=== PATIENT | male | born 1995 | race Caucasian/White ===

== ENCOUNTER 2018-07-15 10:28 | Emergency (ER) | payer MEDICAID ==
[~2018-07-15] VITALS: Ht 177.8 cm; Wt 81.8 kg
[2018-07-15 10:46] VITALS: Ht 177.8 cm; Wt 81.8 kg
[2018-07-15] MEDS ORDERED: NOVOLOG PUMP (10:49)
[2018-07-15 11:19] LABS: BASOPHILS 0.2 % (0-2); EOSINOPHILS 0.2 % (0-7); HEMATOCRIT 45.2 % (42.0-54.0); HEMOGLOBIN 15.5 g/dL (13.5-17.5); IMMATURE GRANULOCYTES 0.7 % (0-5); LYMPHOCYTES 10.6 % (15-50); MCH 30.2 pg (26.0-34.0); MCHC 34.3 g/dL (31.0-37.0); MCV 87.9 fL (80.0-100.0); MEAN PLATELET VOLUME 11.3 fL (7.4-10.4); NEUTROPHILS 84.3 % (40-80); PLATELET COUNT 213 10x3/uL (130-400); RBC 5.14 10x6/uL (4.20-6.10); RDW 12.4 % (11.5-14.5); WBC 10.7 10x3/uL (4.8-10.8)
[2018-07-15 11:29] LABS: KETONE - SERUM SMALL mg/dL (NEGATIVE)
[2018-07-15 11:42] LABS: ALKALINE PHOSPHATASE 127 U/L (46-116); ALT (SGPT) 50 U/L (10-68); BILIRUBIN - TOTAL 1.13 mg/dL (0.2-1.3); CALCIUM 9.1 mg/dL (8.5-10.1); CARBON DIOXIDE 16.5 mmol/L (21.0-32.0); CHLORIDE - SERUM 89 mmol/L (98-107); CREATININE - SERUM 1.5 mg/dL (0.6-1.3); MAGNESIUM - SERUM 2.1 mg/dL (1.8-2.4); POTASSIUM - SERUM 4.8 mmol/L (3.5-5.1); PROTEIN - SERUM 7.7 g/dL (6.4-8.2); SODIUM 127 mmol/L (136-145); UREA NITROGEN 23 mg/dL (7-18); eGFR NON AFRICAN AMERICAN 63 mL/min (90-120)
[2018-07-15 11:42] LABS: APPEARANCE CLEAR (CLEAR); BILIRUBIN NEGATIVE (NEGATIVE); COLOR STRAW (YELLOW); GLUCOSE 1000 mg/dL (NEGATIVE); KETONE LARGE mg/dL (NEGATIVE); NITRITE NEGATIVE (NEGATIVE); PROTEIN NEGATIVE (NEGATIVE); UROBILINOGEN NORMAL (NORMAL)
[2018-07-15 11:43] LABS: CALC OSMOLALITY 290 mosm/kg (275-300)
[2018-07-15 11:44] LABS: GLUCOSE 679 mg/dL (74-106)
[2018-07-15 14:15] VITALS: BP 124/69
== END 2018-07-15 14:15 | disposition home or self-care (01) ==
LOC: D.ER 10:28
PROVIDERS: Family Medicine
DX: E10.65 Type 1 diabetes mellitus with hyperglycemia (principal); Z79.4 Long term (current) use of insulin; F84.0 Autistic disorder; R63.1 Polydipsia